=== PATIENT | male | born 1960 | race Caucasian/White ===

== ENCOUNTER 2023-09-17 14:03 | Outpatient (CLI) | payer BC, SELFPAY | END 2023-09-17 14:04 | disposition home or self-care (01) | LOC: ANHAUDIO 14:04 | PROVIDERS: PCP Family Medicine; Visit Provider Family Medicine | DX: H90.3 Sensorineural hearing loss, bilateral (principal) | CPT/HCPCS: 92557; 92567 ==

== ENCOUNTER 2023-10-11 02:10 | Day surgery (SDC) | payer BC, SELFPAY ==
[2023-09-10 09:05] VITALS: BMI 28.3
--- NOTE | 2023-10-08 09:31 | SUR.PREOP ---
Patient called regarding upcoming procedure. Pt updated on arrival date and time. All questions answered
--- NOTE | 2023-10-09 14:43 | PM.HPGS ---
History of Present Illness History of Present Illness Consent: Risks, benefits, and alternatives have been discussed and questions answered. Patient agrees to proceed with procedure. Chief complaint: neoplasm screening Narrative: Te Virk is a 62 year old male who is referred for colon cancer screening. Review of Systems Review of Systems: All systems reviewed & are unremarkable except as noted in HPI and below PMFSH Family History Family History Father Family history of dementia, Onset Age: 65 Social History Social History Smoking status: Never smoker Alcohol intake: never Substance use: never Substance use type: does not use Living arrangements: with family Spiritual care concerns: No Meds Home Medications and Allergies Home Medications Medication Instructions Recorded Confirmed Type amitriptyline 25 mg tablet 25 mg PO DAILY 09/10/23 09/10/23 History losartan 100 mg tablet 100 mg PO DAILY 09/10/23 09/10/23 History simvastatin 20 mg tablet 20 mg PO DAILY 09/10/23 09/10/23 History Allergies Allergy/AdvReac Type Severity Reaction Status Date / Time acetaminophen [From Vicodin] AdvReac Nausea and Verified 10/11/23 06:15 Vomiting hydrocodone [From Vicodin] AdvReac Nausea and Verified 10/11/23 06:15 Vomiting Exam Resp: Auscultation: clear to auscultation bilaterally Cardio: Rate: regular rate Rhythm: regular rhythm GI: GI Palp: Yes Soft to palpation and No Tenderness to palpation present (GI) Assessment and Plan Assessment and plan (1) Colon cancer screening: Code(s): Z12.11 - Encounter for screening for malignant neoplasm of colon Status: Acute Assessment and Plan: Colonoscopy with possible biopsy or polypectomy or cautery or injection of substances.
[2023-10-11 06:17] VITALS: BP 114/80; PULSE 88; RESP 16; TEMP 35.8; O2SAT 100
[2023-10-11] MEDS: LACTATED RINGERS 1,000 ML 150 ML IV CONT (06:24)
--- NOTE | 2023-10-11 07:19 | WPDANESEPPF ---
Anes - Initial Pre Proc Eval Procedure: Operation Date: 10/11/23 07:30 Proposed Procedures p Screening Colonoscopy - Elfego Gonzalez MD Date/Time: 10/11/23 07:19 Surgeon: Elfego Gonzalez MD Pre Op Diagnosis: neoplasm screening Patient Data Age: 62 Gender: M Height: 1.88 m Weight: 97.9 kg Last Vital Signs Temp 96.4 F L 10/11/23 06:17 Pulse 88 10/11/23 06:17 Resp 16 10/11/23 06:17 BP 114/80 10/11/23 06:17 Pulse Ox 100 10/11/23 06:17 O2 Del Method Room Air 10/11/23 06:17 Allergies Allergy/AdvReac Type Severity Reaction Status Date / Time acetaminophen [From Vicodin] AdvReac Nausea and Verified 10/11/23 06:15 Vomiting hydrocodone [From Vicodin] AdvReac Nausea and Verified 10/11/23 06:15 Vomiting Home Medications Medication Instructions Recorded Confirmed Type amitriptyline 25 mg tablet 25 mg PO DAILY 09/10/23 09/10/23 History losartan 100 mg tablet 100 mg PO DAILY 09/10/23 09/10/23 History simvastatin 20 mg tablet 20 mg PO DAILY 09/10/23 09/10/23 History Patient hx anesthesia problems: none Family hx anesthesia problems: none Results Review: All pre-operative results and documents have been reviewed as part of the pre-operative evaluation. [facility] Family History Family History Father Family history of dementia, Onset Age: 65 Social History Social History Smoking status: Never smoker Alcohol intake: never Substance use: never Substance use type: does not use Living arrangements: with family Spiritual care concerns: No Anes - Eval Final PreProcedure Day of Procedure 10/11/23 07:19 Patient weight: normal Heart: regular rate and rhythm Lungs: clear to auscultation Airway: Mallampati scale class II Neurological: alert and oriented Last oral intake: >/= 8 hours ASA classification: II Emergent: no Anesthetic plan: proceed Anesthesia type and monitoring: general GIVS and standard monitoring Results Review: All pre-operative results and documents have been reviewed as part of the pre-operative evaluation. Informed Consent: The patient's anesthetic plan and its attendant risks and benefits were discussed with the patient/family/POA. Questions were solicited and answers provided to the satisfaction of the patient/family/POA.
[2023-10-11 07:43] VITALS: BP 104/68; PULSE 86; RESP 21; O2SAT 96
[2023-10-11 07:53] VITALS: BP 114/75; PULSE 80; RESP 17; O2SAT 97
[2023-10-11 08:03] VITALS: BP 117/76; PULSE 71; RESP 17; O2SAT 97
== END 2023-10-11 08:10 | disposition home or self-care (01) ==
PROVIDERS: PCP Family Medicine; Visit Provider Internal Medicine Gastroenterology
PROC: 0DJD8ZZ Inspection of Lower Intestinal Tract, Via Natural or Artificial Opening Endoscopic (ICD-10-PCS; CPT 45378; principal; 2023-10-11 07:30)
DX: Z12.11 Encounter for screening for malignant neoplasm of colon (principal); K64.8 Other hemorrhoids
CPT/HCPCS: 45378; J2001; J2704; J7120